=== PATIENT | male | born 1965 ===

== ENCOUNTER 2022-08-18 06:51 | Observation (INO) ==
[~2022-08-18 06:51] MED LIST: Buffered Lidocaine 1% SYRIN 1 ml INTRADERM ONE; Famotidine IV 10 MG/ML 2 ml VIAL (20 mg) IV ONE; Lactated Ringers 1000 ml BAG 1,000 ML IV SCH
[2022-08-18] MEDS ORDERED: Lidocaine 1% w EPI 1:200,000 SDV 30 ML VIAL ONE (07:05)
[2022-08-18] MEDS ORDERED: Gelfoam Sponge SIZE 100 SPONGE ONE (07:06)
[2022-08-18] MEDS ORDERED: Thrombin 5,000 UNITS 1 APPLIC KIT - topical use - TOPICAL ONE (07:06)
[2022-08-18] MEDS ORDERED: Clindamycin 900 MG/D5W BAG 900 MG/50 ML BAG IVPB ONE (07:14)
[2022-08-18] MEDS ORDERED: Famotidine IV 10 MG/ML 2 ml VIAL (20 mg) ONE (07:28)
[2022-08-18] MEDS ORDERED: Rocuronium 50 mg VIAL 10 mg/ml 5 ml VIAL (50 mg) ONE (08:04)
[2022-08-18] MEDS ORDERED: Midazolam 2 mg/2 ml VIAL 1 mg/ml 2 ml VIAL (2 mg) ONE (08:04)
[2022-08-18] MEDS ORDERED: fentaNYL 250 mcg/5 ml 50 MCG/ML 5 ml VIAL (250 MCG) ONE (08:05)
[2022-08-18] MEDS ORDERED: Propofol 10 MG/ML 20 ML BTL ONE (08:07)
[2022-08-18] MEDS ORDERED: Lidocaine 2% PF 5 ML VIAL ONE (08:07)
[2022-08-18] MEDS ORDERED: Ondansetron 4 mg VIAL 2 MG/ML 2 ml VIAL ONE (09:25)
[2022-08-18] MEDS ORDERED: Dexamethasone IV 4 MG/ML VIAL 1 ml VIAL ONE (09:25)
[2022-08-18] MEDS ORDERED: Phenylephrine 40 mcg/mL 10mL (400mcg) SYRINGE ONE (09:30)
[2022-08-18] MEDS ORDERED: Phenylephrine IV 10 MG/ML 1 ml VIAL ONE (09:46)
[2022-08-18] MEDS ORDERED: Acetaminophen IV 1 GM/100ML 1,000 MG/100 ML BAG IV ONE (10:14)
[2022-08-18] MEDS ORDERED: Magnesium Hydroxide LIQ 30 ML UDC PO PRN (11:08)
[2022-08-18] MEDS ORDERED: Ondansetron 4 mg VIAL 2 MG/ML 2 ml VIAL IV PRN (11:08)
[2022-08-18] MEDS ORDERED: Lactated Ringers 1000 ml BAG 1,000 ML IV SCH (12:00)
[2022-08-18] MEDS: HYDROcodone/ACETAMIN 5/325 mg TAB PO PRN (21:11)
[2022-08-19 03:42] VITALS: BP 128/73
[2022-08-19] MEDS: HYDROcodone/ACETAMIN 5/325 mg TAB PO PRN (06:48)
== END 2022-08-19 10:30 | disposition home or self-care (01) ==
LOC: SSU 06:51 → OR 06:51
PROVIDERS: ADMIT Neurological Surgery; ATTEND Neurological Surgery